=== PATIENT | female | born 1995 | race African-American/Black ===

== ENCOUNTER 2016-08-07 01:31 | Emergency (ER) | payer OTHER ==
[~2016-08-07] VITALS: Ht 167.6 cm; Wt 91.2 kg
[~2016-08-07 01:31] MED LIST: AMOXICILLIN500 MG OR; AMOXICILLIN500 MG PO; BENADRYL25 MG PO; BLEPH-1010 % OP; CLARITIN10 M1 PO; DEBROX6.5 % AD; DENIES CURRENT MEDS; HYDROCORT14 EX; MEDDOSEPAK OR; MEDDOSEPAK PO; MOTRIN600 MG/TAB PO; MOTRIN800 MG PO; NO HOME MEDS; NYQUI1 OR; PROTONIX40 MG PO; STERAPRED DS10 MG PO; TAM75CAP PO; ZITHROMAX250 MG OR; ZOFRAN ODT8 MG PO; ZOFRAN ODT8 MG SL; ZOFRAN4 MG/TAB PO
[2016-08-07 02:34] LABS: HEMATOCRIT 32.6 % (37.0-47.0); HEMOGLOBIN 11.2 g/dl (12.0-16.0); IMMATURE GRANULOCYTES 0.3 % (0.0-1.0); MEAN CELL VOLUME 87.6 fL CALC (80.0-100.0); MEAN CORPUSCULAR HGB 30.1 pG CALC (26.0-32.0); MEAN CORPUSCULAR HGB CONC 34.4 g/L CALC (32.0-36.0); NEUT# 2.9 thou/uL (2.00-7.15); RED BLOOD COUNT 3.72 mill/uL (4.20-5.60); RED CELL DISTRI WIDTH 11.9 % (11.5-15.5)
[2016-08-07 02:36] LABS: URINE BILIRUBIN - DIPSTICK NEGATIVE (NEGATIVE); URINE BLOOD DIPSTICK NEGATIVE (NEGATIVE); URINE CLARITY SLIGHT CLOUDY; URINE COLOR YELLOW; URINE GLUCOSE - DIPSTICK NEGATIVE (NEGATIVE); URINE KETONE NEGATIVE (NEGATIVE); URINE LEUK ESTERASE NEGATIVE (NEGATIVE); URINE NITRITE - DIPSTICK NEGATIVE (Negative); URINE PH 6.5 (4.5-8.0); URINE PROTEIN - DIPSTICK TRACE mg/dL (NEG-TRACE); URINE SPECIFIC GRAVITY 1.025
[2016-08-07 02:49] LABS: ALBUMIN 4.2 g/dL (3.2-5.0); ALKALINE PHOSPHATASE 61 u/l (38-126); ANION GAP 15 (6-22 (CALC)); BILIRUBIN, TOTAL 0.5 mg/dL (0.0-1.4); BUN 8 mg/dL (7-17); BUN/CREATININE RATIO 14 (12-20 (CALC)); CALCIUM 9.7 mg/dL (8.4-10.2); CARBON DIOXIDE 23 mmol/l (22-30); CHLORIDE 106 mmol/l (95-108); CREATININE 0.6 mg/dL (0.5-1.0); GFR > 60 ML/MIN (>=60 (CALC)); GFR FOR AFR.AMER. > 60 ML/MIN (>=60 (CALC)); GLUCOSE 89 mg/dL (65-105); SGOT/AST 18 u/l (14-36); SGPT/ALT 23 u/l (9-52); SODIUM 141 mmol/l (137-146); TOTAL PROTEIN 7.8 g/dL (6.3-8.2)
[2016-08-07] MEDS ORDERED: ZOFRAN ODT4 MG PO (02:51)
[2016-08-07 03:00] VITALS: BP 120/72
== END 2016-08-07 03:00 | disposition home or self-care (01) | DRG 392 ==
LOC: ED 01:31 → ED-I 02:51 → ED 03:00
PROVIDERS: Emergency Medicine
DX: K52.9 Noninfective gastroenteritis and colitis, unspecified (principal); R11.2 Nausea with vomiting, unspecified

== ENCOUNTER 2016-10-24 02:43 | Emergency (ER) | payer OTHER ==
[~2016-10-24] VITALS: Ht 167.6 cm; Wt 98.0 kg
[~2016-10-24 02:43] MED LIST changes: +ZOFRAN ODT4 MG PO
[2016-10-24] MEDS ORDERED: PERCOCET 5/325M1 TAB PO (05:17)
[2016-10-24 05:39] VITALS: BP 118/72
== END 2016-10-24 05:39 | disposition home or self-care (01) | DRG 605 ==
LOC: ED 02:43
DX: S00.81XA Abrasion of other part of head, initial encounter (principal); M79.642 Pain in left hand; M79.89 Other specified soft tissue disorders; Y04.0XXA Assault by unarmed brawl or fight, initial encounter

== ENCOUNTER 2017-10-18 10:36 | Emergency (ER) | payer SELFPAY ==
[~2017-10-18] VITALS: Ht 167.6 cm; Wt 94.2 kg
[~2017-10-18 10:36] MED LIST changes: +PERCOCET 5/325M1 TAB PO
[2017-10-18] MEDS ORDERED: MEDDOSEPAK PO (11:21)
[2017-10-18] MEDS ORDERED: PEPCID20 MG PO (11:21)
[2017-10-18 11:43] VITALS: BP 134/76
== END 2017-10-18 11:50 | disposition home or self-care (01) | DRG 607 ==
LOC: ED 10:36
DX: L27.2 Dermatitis due to ingested food (principal)

== ENCOUNTER 2018-09-17 23:38 | Emergency (ER) | payer SELFPAY ==
[~2018-09-17] VITALS: Ht 167.6 cm; Wt 99.1 kg
[~2018-09-17 23:38] MED LIST changes: +PEPCID20 MG PO
[2018-09-18 01:08] LABS: URINE BILIRUBIN - DIPSTICK NEGATIVE (NEGATIVE); URINE BLOOD DIPSTICK NEGATIVE (NEGATIVE); URINE COLOR YELLOW; URINE GLUCOSE - DIPSTICK NEGATIVE (NEGATIVE); URINE KETONE NEGATIVE (NEGATIVE); URINE NITRITE - DIPSTICK NEGATIVE (Negative); URINE PH 6.5 (4.5-8.0); URINE PROTEIN - DIPSTICK NEGATIVE (NEG-TRACE); URINE UROBILINOGEN - DIPSTICK 0.2 E.U./dL (0.2)
[2018-09-18 01:20] LABS: URINE LEUK ESTERASE SMALL (NEGATIVE)
[2018-09-18 01:24] LABS: URINE BACTERIA FEW hpf; URINE EPITHELIAL CELLS FEW EPI/hpf (0-FEW); URINE WBC TNTC WBC/hpf (0-5)
[2018-09-18 01:25] LABS: URINE TRICHOMONAS MODERATE hpf
[2018-09-18] MEDS ORDERED: METRONIDAZOL500 MG PO (01:41)
[2018-09-18 02:09] VITALS: BP 134/74
== END 2018-09-18 02:09 | disposition home or self-care (01) | DRG 759 ==
LOC: ED 23:38
PROVIDERS: Family Medicine
DX: A59.01 Trichomonal vulvovaginitis (principal)

== ENCOUNTER 2018-09-25 19:17 | Emergency (ER) | payer SELFPAY ==
[~2018-09-25] VITALS: Ht 167.6 cm; Wt 109.0 kg
[~2018-09-25 19:17] MED LIST changes: +METRONIDAZOL500 MG PO
[2018-09-25 20:34] VITALS: BP 110/68
== END 2018-09-25 20:30 | disposition home or self-care (01) | DRG 759 ==
LOC: ED 19:17
DX: A59.01 Trichomonal vulvovaginitis (principal); F17.290 Nicotine dependence, other tobacco product, uncomplicated

== ENCOUNTER 2020-05-22 17:42 | Emergency (ER) | payer BC ==
[~2020-05-22] VITALS: Ht 167.6 cm; Wt 95.5 kg
[2020-05-22 20:16] VITALS: BP 110/78
== END 2020-05-22 20:16 | disposition home or self-care (01) | DRG 747 ==
LOC: ED 17:42
PROC: 0U9MXZZ Drainage of Vulva, External Approach (ICD-10-PCS; principal; 2020-05-22)
DX: N76.4 Abscess of vulva (principal); F17.290 Nicotine dependence, other tobacco product, uncomplicated

== ENCOUNTER 2021-10-09 01:07 | Emergency (ER) | payer BC ==
[~2021-10-09] VITALS: Ht 167.6 cm; Wt 93.0 kg
[2021-10-09 01:14] VITALS: BP 115/74
[2021-10-09 01:32] LABS: HEMATOCRIT 34.6 % (37.0-47.0); HEMOGLOBIN 11.7 g/dl (12.0-16.0); IMMATURE GRANULOCYTES 0.2 % (0.0-5.0); MEAN CELL VOLUME 90.6 fL CALC (80.0-100.0); MEAN CORPUSCULAR HGB 30.6 pG CALC (26.0-32.0); MEAN CORPUSCULAR HGB CONC 33.8 g/dL CAL (32.0-36.0); NEUT# 10.16 thou/uL (2.00-7.15); RED BLOOD COUNT 3.82 mill/uL (4.20-5.60); RED CELL DISTRI WIDTH 12.2 % (11.5-15.5)
[2021-10-09 01:37] VITALS: BP 118/79
[2021-10-09 01:44] LABS: URINE BILIRUBIN - DIPSTICK NEGATIVE (NEGATIVE); URINE BLOOD DIPSTICK LARGE (NEGATIVE); URINE COLOR YELLOW; URINE GLUCOSE - DIPSTICK NEGATIVE (NEGATIVE); URINE KETONE NEGATIVE (NEGATIVE); URINE LEUK ESTERASE TRACE (NEGATIVE); URINE NITRITE - DIPSTICK NEGATIVE (Negative); URINE PH 7.5 (4.5-8.0); URINE PROTEIN - DIPSTICK NEGATIVE (NEG-TRACE); URINE SPECIFIC GRAVITY 1.015; URINE UROBILINOGEN - DIPSTICK 0.2 E.U./dL (0.2)
[2021-10-09 01:45] LABS: HCG SERUM/URINE (NEG/POS) NEGATIVE (NEGATIVE)
[2021-10-09 01:49] LABS: URINE SQUAMOUS EPITHELIAL CELL FEW EPI/hpf (0-FEW); URINE WBC 0-2 WBC/hpf (0-5)
[2021-10-09] MEDS ORDERED: TAM75CAP PO (02:10)
[2021-10-09 02:14] VITALS: BP 118/79
== END 2021-10-09 02:24 | disposition home or self-care (01) | DRG 195 ==
LOC: ED 01:07
PROVIDERS: Family Medicine
DX: J10.1 Influenza due to other identified influenza virus with other respiratory manifestations (principal); F17.200 Nicotine dependence, unspecified, uncomplicated; Z20.822 Contact with and (suspected) exposure to COVID-19

== ENCOUNTER 2023-01-25 21:11 | Emergency (ER) | payer BC ==
[~2023-01-25] VITALS: Ht 167.6 cm; Wt 83.0 kg
[2023-01-26] MEDS ORDERED: IBUPROFEN600 MG PO (02:32)
[2023-01-26 03:15] VITALS: BP 122/74
== END 2023-01-26 03:15 | disposition home or self-care (01) | DRG 605 ==
LOC: ED 21:11
PROC: 3E0T3BZ Introduction of Anesthetic Agent into Peripheral Nerves and Plexi, Percutaneous Approach (ICD-10-PCS; principal; 2023-01-25)
DX: S90.211A Contusion of right great toe with damage to nail, initial encounter (principal); F17.200 Nicotine dependence, unspecified, uncomplicated; W22.03XA Walked into furniture, initial encounter; Y92.009 Unspecified place in unspecified non-institutional (private) residence as the place of occurrence of the external cause

== ENCOUNTER 2023-11-02 06:34 | Emergency (ER) | payer BC ==
[~2023-11-02] VITALS: Ht 167.6 cm; Wt 83.0 kg
[~2023-11-02 06:34] MED LIST changes: +IBUPROFEN600 MG PO
[2023-11-02 06:40] VITALS: BP 122/64
[2023-11-02] MEDS ORDERED: NEOMYCIN-POLYMYXIN-HC OTIC SUSP. 10 ML BTL AU ONE (06:45)
[2023-11-02] MEDS ORDERED: ACETAMINOPHEN 500 MG TAB PO ONE (06:45)
[2023-11-02] MEDS ORDERED: IBUPROFEN 600 MG/TAB PO ONE (06:45)
[2023-11-02] MEDS ORDERED: CORTISPORIN OTI10 ML AU (06:49)
[2023-11-02 06:53] VITALS: BP 122/64
== END 2023-11-02 06:54 | disposition home or self-care (01) | DRG 156 ==
LOC: ED 06:34
DX: H60.93 Unspecified otitis externa, bilateral (principal); F17.200 Nicotine dependence, unspecified, uncomplicated

== ENCOUNTER 2024-01-19 21:39 | Emergency (ER) | payer SELFPAY ==
[2024-01-19] VITALS (7 sets, daily range): BP systolic 120–143; BP diastolic 82–101
[~2024-01-19] VITALS: Ht 167.6 cm; Wt 82.0 kg
[~2024-01-19 21:39] MED LIST changes: +CORTISPORIN OTI10 ML AU
[2024-01-19] MEDS ORDERED: DICYCLOMINE HCL 10 MG/CAP PO ONE (22:10)
[2024-01-19] MEDS ORDERED: ACETAMINOPHEN 500 MG TAB PO ONE (22:10)
[2024-01-19] MEDS ORDERED: KETOROLAC TROMETHAMINE 30 MG/ML SDV IM ONE (22:10)
[2024-01-19 22:28] LABS: BASO% 0.3 % (0-3); EOS% 1.7 % (0-8); HEMATOCRIT 36.6 % (37.0-47.0); HEMOGLOBIN 12.1 g/dl (12.0-16.0); IMMATURE GRANULOCYTES 0.2 % (0.0-5.0); LYMPH% 42.5 % (15-41); MEAN CORPUSCULAR HGB 30.1 pG CALC (26.0-32.0); MEAN CORPUSCULAR HGB CONC 33.1 g/dL CAL (32.0-36.0); MONO% 8.4 % (2-13); NEUT# 2.96 thou/uL (2.00-7.15); NEUT% 46.9 % (42-76); RED BLOOD COUNT 4.02 mill/uL (4.20-5.60)
[2024-01-19 22:28] LABS: URINE BILIRUBIN - DIPSTICK Negative (NEGATIVE); URINE BLOOD DIPSTICK Trace-intact (NEGATIVE); URINE COLOR Yellow; URINE GLUCOSE - DIPSTICK Negative (NEGATIVE); URINE KETONE Negative (NEGATIVE); URINE LEUK ESTERASE Negative (NEGATIVE); URINE NITRITE - DIPSTICK Negative (Negative); URINE PROTEIN - DIPSTICK Negative (NEG-TRACE); URINE SPECIFIC GRAVITY 1.025; URINE UROBILINOGEN - DIPSTICK 0.2 E.U./dL (0.2)
[2024-01-19 22:42] LABS: ALBUMIN 4.2 g/dL (3.2-5.0); BILIRUBIN, TOTAL 0.4 mg/dL (0.02-1.3); CREATININE 0.6 mg/dL (0.5-1.0); POTASSIUM 4.3 mmol/l (3.5-5.1); TOTAL PROTEIN 7.5 g/dL (6.3-8.2)
[2024-01-19] MEDS ORDERED: DOXY-CAPS100 MG PO (22:50)
[2024-01-19] MEDS ORDERED: METRONIDAZOLE500 MG PO (22:50)
[2024-01-19] MEDS ORDERED: cefTRIAXone SODIUM 1 GM/VIAL SDV IM ONE (22:55)
[2024-01-19] MEDS ORDERED: AZITHROMYCIN 250 MG/TAB PO ONE (22:55)
[2024-01-19] MEDS ORDERED: LIDOcaine HCl 1% (Local Anesth.) 20 ML VIAL IM STA (22:56)
[2024-01-19] MEDS ORDERED: ONDANSETRON 4 MG/TAB ODT PO ONE (23:00)
== END 2024-01-19 23:32 | disposition home or self-care (01) | DRG 761 ==
LOC: ED 21:39
PROVIDERS: Internal Medicine
DX: N89.8 Other specified noninflammatory disorders of vagina (principal); Z20.2 Contact with and (suspected) exposure to infections with a predominantly sexual mode of transmission; F17.290 Nicotine dependence, other tobacco product, uncomplicated